=== PATIENT | female | born 1950 | race Caucasian/White ===

== ENCOUNTER → 2016-10-26 | Outpatient (CLI) | payer OTHER, MEDICAID ==
[~2016-10-26] MED LIST: ALBU8.5H5 INH; ALPR1TAB2 PO; ASPI-496 PO; ASPI325T4 PO; ATOR80TA75 PO; BACL-19 PO; CEFD300C2 PO; CHOL10002 PO; CHOL4PAC11 PO; CLOP75TA22 PO; DEXA4TAB PO; DIPH1TAB PO; DULO20CA45 PO; ERTA1VIA IV; FLUT1DIS3 INH; GABA300C10 PO; LEVO25TA2 PO; LEVO75TA5 PO; LISI1TAB5 PO; MECL25TA4 PO; METR500T PO; METR500T4 PO; MULT-658 PO; MUSCLE RELAXANT; NITR0.4T SL; NITR0.4T8 SL; NITR100C PO; NITR2.5C8 PO; OMEG1CAP12 PO; OMEP-110 PO; OMEP10CA4 PO; ONDA-39 PO; OXYC1TAB7 PO; OXYC1TAB9 PO; OXYC5CAP4 PO; PARO20TA4 PO; POLY17PO5 PO; POTA99TA PO; PROP10TA PO; ROPI0.25 PO; SUCR1TAB PO; TIOT18CA INH; TIOT4MIS3 INH; TRAM50TA2 PO; TRAZ50TA18 PO; VITA1TAB68 PO; ZOLP5TAB6 PO; fluticasone
== END | disposition home or self-care (01) ==
LOC: CFH 08:36
PROVIDERS: ATTEND Internal Medicine
DX: J44.9 Chronic obstructive pulmonary disease, unspecified (principal); J98.11 Atelectasis; K74.0 Hepatic fibrosis
CPT/HCPCS: 71250

== ENCOUNTER 2016-11-01 20:19 | Emergency (ER) | payer OTHER, MEDICAID ==
[~2016-11-01] VITALS: Ht 172.7 cm; Wt 94.8 kg
[2016-11-01 20:21] VITALS: BP 183/91
[2016-11-01] MEDS ORDERED: SODIUM CHLORIDE FLUSH 10ML SYR IVF ONE (20:30)
[2016-11-01] MEDS ORDERED: ONDANSETRON 2MG/ML, 2ML IVPush ONE (20:30)
[2016-11-01] MEDS ORDERED: MORPHINE SULFATE 4 MG/ML, 1ML IVPush PRN (20:30)
[2016-11-01 20:44] LABS: HEMOGLOBIN 13.3 g/dL (11.7-16.4)
[2016-11-01 20:55] LABS: BLOOD UREA NITROGEN 6 mg/dL (7-18)
[2016-11-01] MEDS ORDERED: METOCLOPRAMIDE 5 MG/ML, 2ML ONE (21:32)
[2016-11-01] MEDS ORDERED: KETOROLAC 30 MG/1 ML ONE (21:32)
[2016-11-01] MEDS ORDERED: METOCLOPRAMIDE 5 MG/ML, 2ML IM ONE (22:00)
[2016-11-01] MEDS ORDERED: ONDANSETRON ODT 8 MG PO ONE (22:00)
[2016-11-01] MEDS ORDERED: KETOROLAC 30 MG/1 ML IM ONE (22:00)
[2016-11-01] MEDS ORDERED: CIPROFLOXACIN 500 MG TABLET ONE (22:22)
[2016-11-01] MEDS ORDERED: CIPROFLOXACIN 500 MG TABLET PO ONE (22:30)
== END 2016-11-01 22:30 | disposition home or self-care (01) ==
LOC: ED 22:24
DX: R10.32 Left lower quadrant pain (principal); N30.00 Acute cystitis without hematuria; I10 Essential (primary) hypertension; E11.9 Type 2 diabetes mellitus without complications; E03.9 Hypothyroidism, unspecified; K21.9 Gastro-esophageal reflux disease without esophagitis; J44.9 Chronic obstructive pulmonary disease, unspecified; Z90.710 Acquired absence of both cervix and uterus; Z88.0 Allergy status to penicillin; Z88.2 Allergy status to sulfonamides; Z88.5 Allergy status to narcotic agent; Z88.1 Allergy status to other antibiotic agents
CPT/HCPCS: 36415; 74176; 80048; 81001; 82040; 85025; 87086; 87147; 96372; 99285; J1885; J2765

== ENCOUNTER 2017-01-25 17:52 | Inpatient (IN) | payer OTHER, MEDICAID ==
[~2017-01-25] VITALS: Ht 172.7 cm; Wt 95.0 kg
[~2017-01-25 17:52] MED LIST changes: -CEFD300C2 PO; +CEFD300C37 PO; -OMEG1CAP12 PO; +OMEG1CAP23 PO
[2017-01-25] MEDS ORDERED: ONDANSETRON 2MG/ML, 2ML ONE (18:21)
[2017-01-25] MEDS ORDERED: MORPHINE SULFATE 4 MG/ML, 1ML ONE ×2 (18:21→21:10)
[2017-01-25] MEDS ORDERED: DICYCLOMINE 20 MG TABLET PO ONE (18:30)
[2017-01-25] MEDS ORDERED: ONDANSETRON 2MG/ML, 2ML IVPush ONE (18:30)
[2017-01-25] MEDS ORDERED: SODIUM CHLORIDE 0.9% 1,000ML IVBOLUS ONE (18:30)
[2017-01-25] MEDS: MORPHINE SULFATE 4 MG/ML, 1ML IVPush PRN ×2 (18:32→21:20)
[2017-01-25 18:40] LABS: ASPARTATE AMINO TRANSFERASE 28 U/L (15-37); BLOOD UREA NITROGEN 8 mg/dL (7-18)
[2017-01-25 19:13] LABS: PATH.CAST-FLAG NOT PRESENT; SPERM-FLAG NOT PRESENT; SRC-FLAG NOT PRESENT; XTAL-FLAG NOT PRESENT; YLC-FLAG NOT PRESENT
[2017-01-25] MEDS ORDERED: METOCLOPRAMIDE 5 MG/ML, 2ML ONE (21:10)
[2017-01-25] MEDS ORDERED: DIPHENHYDRAMINE 50 MG/ML, 1ML ONE (21:10)
[2017-01-25] MEDS ORDERED: MORPHINE SULFATE 4 MG/ML, 1ML IVPush PRN (21:30)
[2017-01-25] MEDS ORDERED: DIPHENHYDRAMINE 50 MG/ML, 1ML IVPush ONE (21:30)
[2017-01-25] MEDS ORDERED: METOCLOPRAMIDE 5 MG/ML, 2ML IVPush ONE (21:30)
[2017-01-25] MEDS ORDERED: OMNIPAQUE 350 MG/ML, 100ML BOTTLE ONE (22:02)
[2017-01-26] MEDS ORDERED: ENOXAPARIN 40 MG/0.4 ML SQ SCH (01:00)
[2017-01-26] MEDS ORDERED: LORazepam 2 MG/ML, 1ML IVPush PRN (01:00)
[2017-01-26] MEDS ORDERED: LABETALOL 5MG/ML, 20ML IVPush PRN (01:00)
[2017-01-26] MEDS ORDERED: ONDANSETRON 2MG/ML, 2ML IVPush PRN (01:00)
[2017-01-26 01:41] VITALS: BP 96/58
[2017-01-26] MEDS: morphine SULFATE 10 MG/ML, 1ML IVPush PRN ×3 (02:06→15:19)
[2017-01-26] MEDS: SODIUM CHLORIDE 0.9% 1,000 ML IV SCH ×3 (03:12→17:31)
[2017-01-26 04:11] VITALS: BP 125/73
[2017-01-26 04:17] VITALS: BP 127/65
[2017-01-26 08:55] VITALS: BP 122/71
[2017-01-26] MEDS: PINK LADY ENEMA 1,000 ML PR SCH ×2 (13:30→23:15)
[2017-01-26 13:33] LABS: BLOOD UREA NITROGEN 7 mg/dL (7-18)
[2017-01-26 14:30] VITALS: BP 117/62
[2017-01-26] MEDS ORDERED: MAGNESIUM SULFATE PMX 2GM/50ML 50 ML IV ONE (17:00)
[2017-01-26 18:48] VITALS: BP 110/63
[2017-01-26] MEDS: DULOXETINE 20 MG CAPSULE.DR PO SCH (21:50)
[2017-01-26] MEDS: TRAZODONE 50MG TABLET PO PRN (21:50)
[2017-01-27 00:01] VITALS: BP 130/69
[2017-01-27] MEDS ORDERED: MORPHINE SULFATE 4 MG/ML, 1ML ONE ×2 (00:31→04:46)
[2017-01-27] MEDS: morphine SULFATE 10 MG/ML, 1ML IVPush PRN ×3 (00:33→21:06)
[2017-01-27] MEDS: SODIUM CHLORIDE 0.9% 1,000 ML IV SCH ×3 (00:35→20:30)
[2017-01-27 05:19] LABS: BLOOD UREA NITROGEN 5 mg/dL (7-18)
[2017-01-27 05:49] LABS: DIFF TOTAL CELLS COUNTED 100 CELL DIFF
[2017-01-27 05:51] LABS: VERIFY COUNTS? YES
[2017-01-27] MEDS ORDERED: PROPOFOL 10 MG/ML, 20ML ONE (07:29)
[2017-01-27] MEDS ORDERED: ONDANSETRON 2MG/ML, 2ML IVPush PRN (07:30)
[2017-01-27] MEDS ORDERED: ALBUTEROL/IPRATROPIUM 2.5MG/0.5MG, 3 ML NPPB PRN (07:30)
[2017-01-27] MEDS ORDERED: OXYcodone 5 MG/5 ML ORAL.SOL UDC PO PRN (07:30)
[2017-01-27] MEDS ORDERED: FENTANYL PF 100 MCG/2ML IV PRN (07:30)
[2017-01-27] MEDS ORDERED: HYDROmorphone 1 MG/ML, 1ML IV PRN (07:30)
[2017-01-27] MEDS ORDERED: MIDAZOLAM 1 MG/ML, 2ML IV PRN (07:30)
[2017-01-27] MEDS ORDERED: PROMETHAZINE 25 MG/ML, 1ML IV PRN (07:30)
[2017-01-27] MEDS ORDERED: MIDAZOLAM 1 MG/ML, 2ML ONE (07:33)
[2017-01-27 08:45] VITALS: BP 130/55
[2017-01-27] MEDS: DULOXETINE 20 MG CAPSULE.DR PO SCH ×2 (09:02→21:05)
[2017-01-27 12:25] VITALS: BP 155/69
[2017-01-27 20:50] VITALS: BP 138/74
[2017-01-27] MEDS: TRAZODONE 50MG TABLET PO PRN (23:08)
[2017-01-28] MEDS: TRAZODONE 50MG TABLET PO PRN ×3 (00:43→23:36)
[2017-01-28 02:19] VITALS: BP 145/77
[2017-01-28] MEDS: SODIUM CHLORIDE 0.9% 1,000 ML IV SCH ×3 (05:00→22:30)
[2017-01-28 06:54] VITALS: BP 119/68
[2017-01-28] MEDS: DULOXETINE 20 MG CAPSULE.DR PO SCH ×2 (09:00→20:28)
[2017-01-28 13:31] VITALS: BP 150/80
[2017-01-28] MEDS: morphine SULFATE 10 MG/ML, 1ML IVPush PRN ×2 (14:49→23:29)
[2017-01-28 18:48] VITALS: BP 146/76
[2017-01-29 01:25] VITALS: BP 127/58
[2017-01-29 07:36] VITALS: BP 125/77
[2017-01-29] MEDS ORDERED: OXYcodone/APAP 5/325MG TABLET PO ONE (09:00)
[2017-01-29] MEDS: DULOXETINE 20 MG CAPSULE.DR PO SCH (09:03)
[2017-01-29] MEDS ORDERED: OXYcodone/APAP 5/325MG TABLET ONE ×2 (09:10→09:11)
[2017-01-29] MEDS: SODIUM CHLORIDE 0.9% 1,000 ML IV SCH (09:16)
[2017-01-29 13:41] VITALS: BP 153/71
== END 2017-01-29 13:50 | disposition home or self-care (01) | DRG 394 ==
LOC: ED 21:05 → EDIP 01-26 00:15 → 4NOR 01-26 01:08
PROVIDERS: ADMIT Internal Medicine; ATTEND Internal Medicine
PROC: 0D7N8ZZ Dilation of Sigmoid Colon, Via Natural or Artificial Opening Endoscopic (ICD-10-PCS; principal; 2017-01-27 07:30)
DX: K91.3 Postprocedural intestinal obstruction (principal); K43.6 Other and unspecified ventral hernia with obstruction, without gangrene; E87.1 Hypo-osmolality and hyponatremia; J96.10 Chronic respiratory failure, unspecified whether with hypoxia or hypercapnia; K76.6 Portal hypertension; Z91.030 Bee allergy status; Z91.048 Other nonmedicinal substance allergy status; K59.00 Constipation, unspecified; I11.9 Hypertensive heart disease without heart failure; J44.9 Chronic obstructive pulmonary disease, unspecified; K59.09 Other constipation; K64.9 Unspecified hemorrhoids; R56.9 Unspecified convulsions; E03.9 Hypothyroidism, unspecified; E11.9 Type 2 diabetes mellitus without complications; E87.6 Hypokalemia; F31.9 Bipolar disorder, unspecified; G89.29 Other chronic pain; K21.9 Gastro-esophageal reflux disease without esophagitis; K74.60 Unspecified cirrhosis of liver; K80.20 Calculus of gallbladder without cholecystitis without obstruction; Z86.73 Personal history of transient ischemic attack (TIA), and cerebral infarction without residual deficits; Z87.11 Personal history of peptic ulcer disease; Z87.891 Personal history of nicotine dependence; Z90.710 Acquired absence of both cervix and uterus; Z93.2 Ileostomy status; Z88.0 Allergy status to penicillin; Z88.2 Allergy status to sulfonamides; Z88.8 Allergy status to other drugs, medicaments and biological substances; Z88.6 Allergy status to analgesic agent; Z88.1 Allergy status to other antibiotic agents; Z90.89 Acquired absence of other organs; Z90.49 Acquired absence of other specified parts of digestive tract
CPT/HCPCS: 36415; 74000; 74020; 74177; 76000; 80048; 80053; 81001; 83735; 85025; 87086; 87324; 96361; 96374; 96375; J1650; J2250; J2405; J2704; Q9967; C1725; J1200; J2060; J2270; J2765; J3475; J7030

== ENCOUNTER 2017-06-23 18:54 | Inpatient (IN) | payer OTHER, MEDICAID ==
[~2017-06-23] VITALS: Ht 172.7 cm; Wt 96.4 kg
[~2017-06-23 18:54] MED LIST changes: +ALBUTEROL MDI; +ASPI325T17 PO; -ASPI325T4 PO; +ATOR-2 PO; -ATOR80TA75 PO; -CLOP75TA22 PO; +CLOP75TA52 PO; +METO10TA2 PO; +METO5TAB57 PO; -METR500T4 PO; +METR500T8 PO; +NITR0.4T28 SL; -NITR0.4T8 SL; -ONDA-39 PO; +ONDA4TAB12 PO; +OXYC5CAP2 PO; -OXYC5CAP4 PO; -POTA99TA PO; +POTA99TA2 PO; +SUCR1ORA5 PO
[2017-06-23] MEDS ORDERED: HYDROmorphone 1 MG/ML, 1ML ONE ×2 (19:29→21:55)
[2017-06-23] MEDS ORDERED: HYDROmorphone 1 MG/ML, 1ML IM ONE (19:30)
[2017-06-23] MEDS ORDERED: SODIUM CHLORIDE FLUSH 10ML SYR IVF ONE (21:00)
[2017-06-23] MEDS ORDERED: HYDROmorphone 1 MG/ML, 1ML IV ONE (21:00)
[2017-06-23] MEDS ORDERED: ONDANSETRON 2MG/ML, 2ML IVPush ONE (21:00)
[2017-06-23] MEDS ORDERED: SODIUM CHLORIDE 0.9% 1,000ML IVBOLUS ONE (21:00)
[2017-06-23 21:09] LABS: HEMATOCRIT 41.4 % (34.6-47.8); HEMOGLOBIN 14.3 g/dL (11.7-16.4); WHITE BLOOD COUNT 7.2 x10^3/uL (3.4-10)
[2017-06-23] MEDS ORDERED: CETI10CA8 PO (21:23)
[2017-06-23] MEDS ORDERED: DULO20CA45 PO (21:23)
[2017-06-23] MEDS ORDERED: TRAZ50TA18 PO (21:23)
[2017-06-23] MEDS ORDERED: DOCU-131 PO (21:23)
[2017-06-23] MEDS ORDERED: ATOR-2 PO (21:23)
[2017-06-23] MEDS ORDERED: LISI1TAB3 PO (21:23)
[2017-06-23] MEDS ORDERED: NAPR250T6 PO (21:23)
[2017-06-23] MEDS ORDERED: FLUT1AER INH (21:23)
[2017-06-23] MEDS ORDERED: ASCO10004 PO (21:23)
[2017-06-23] MEDS ORDERED: FLUT9.9S NAS (21:23)
[2017-06-23] MEDS ORDERED: ASPI-650 PO (21:23)
[2017-06-23] MEDS ORDERED: METO25TA2 PO (21:23)
[2017-06-23] MEDS ORDERED: QUET25TA PO (21:23)
[2017-06-23] MEDS ORDERED: POTA99TA24 PO (21:23)
[2017-06-23] MEDS ORDERED: MAGN400T36 PO (21:23)
[2017-06-23] MEDS ORDERED: MECL25TA4 PO (21:23)
[2017-06-23] MEDS ORDERED: VITA150T PO (21:23)
[2017-06-23 21:26] LABS: ASPARTATE AMINO TRANSFERASE 23 U/L (15-37); BLOOD UREA NITROGEN 5 mg/dL (7-18)
[2017-06-23] MEDS ORDERED: OXYGEN INH (21:31)
[2017-06-23] MEDS ORDERED: ONDANSETRON 2MG/ML, 2ML ONE (21:55)
[2017-06-23] MEDS ORDERED: KETOROLAC 30 MG/1 ML IM PRN (22:30)
[2017-06-23] MEDS ORDERED: ONDANSETRON 2MG/ML, 2ML IVPush PRN (22:30)
[2017-06-23 22:47] VITALS: BP 123/75
[2017-06-23] MEDS ORDERED: METOCLOPRAMIDE 5 MG/ML, 2ML IVPush ONE (23:00)
[2017-06-23] MEDS: NS + 20MEQ KCL 1,000 ML IV SCH (23:46)
[2017-06-24] MEDS ORDERED: DIPHENHYDRAMINE 50 MG/ML, 1ML IVPush ONE ×2 (00:30)
[2017-06-24 01:02] LABS: PATH.CAST-FLAG NOT PRESENT; SPERM-FLAG NOT PRESENT; SRC-FLAG NOT PRESENT; XTAL-FLAG NOT PRESENT; YLC-FLAG NOT PRESENT
[2017-06-24 03:33] VITALS: BP 145/74
[2017-06-24] MEDS ORDERED: KETOROLAC 30 MG/1 ML IVPush PRN (04:30)
[2017-06-24] MEDS: KETOROLAC 30 MG/1 ML IVPush PRN ×3 (05:41→19:13)
[2017-06-24 05:54] LABS: BLOOD UREA NITROGEN 7 mg/dL (7-18)
[2017-06-24 06:40] VITALS: BP 118/69
[2017-06-24] MEDS: NS + 20MEQ KCL 1,000 ML IV SCH ×3 (06:54→23:31)
[2017-06-24] MEDS: ENOXAPARIN 40 MG/0.4 ML SQ SCH (10:23)
[2017-06-24] MEDS: CEFTRIAXONE PMX 1GM/50ML 50 ML IV SCH (16:58)
[2017-06-24 17:04] VITALS: BP 137/69
[2017-06-24 19:00] VITALS: BP 113/63
[2017-06-24] MEDS: TRAZODONE 50MG TABLET PO PRN (23:31)
[2017-06-25 00:43] VITALS: BP 147/81
[2017-06-25] MEDS: KETOROLAC 30 MG/1 ML IVPush PRN ×4 (02:25→23:26)
[2017-06-25] MEDS: NS + 20MEQ KCL 1,000 ML IV SCH ×3 (05:57→20:04)
[2017-06-25 07:06] VITALS: BP 114/71
[2017-06-25] MEDS: ENOXAPARIN 40 MG/0.4 ML SQ SCH (10:14)
[2017-06-25 14:15] VITALS: BP 135/70
[2017-06-25] MEDS: CEFTRIAXONE PMX 1GM/50ML 50 ML IV SCH (16:56)
[2017-06-25 19:21] VITALS: BP 148/79
[2017-06-25] MEDS: TRAZODONE 50MG TABLET PO PRN (23:25)
[2017-06-26 01:48] VITALS: BP 145/74
[2017-06-26] MEDS: NS + 20MEQ KCL 1,000 ML IV SCH ×3 (02:58→16:50)
[2017-06-26 05:57] LABS: HEMATOCRIT 33.4 % (34.6-47.8); HEMOGLOBIN 11.5 g/dL (11.7-16.4); WHITE BLOOD COUNT 3.3 x10^3/uL (3.4-10)
[2017-06-26 06:07] LABS: ASPARTATE AMINO TRANSFERASE 17 U/L (15-37); BLOOD UREA NITROGEN 5 mg/dL (7-18)
[2017-06-26 07:58] VITALS: BP 131/74
[2017-06-26] MEDS: KETOROLAC 30 MG/1 ML IVPush PRN ×3 (08:04→21:46)
[2017-06-26] MEDS: ENOXAPARIN 40 MG/0.4 ML SQ SCH (10:22)
[2017-06-26 15:00] VITALS: BP 137/78
[2017-06-26] MEDS: CEFTRIAXONE PMX 1GM/50ML 50 ML IV SCH (16:51)
[2017-06-26 18:57] VITALS: BP 141/74
[2017-06-26] MEDS: TRAZODONE 50MG TABLET PO PRN (21:46)
[2017-06-27] MEDS: NS + 20MEQ KCL 1,000 ML IV SCH ×4 (01:08→21:35)
[2017-06-27 01:38] VITALS: BP 135/71
[2017-06-27] MEDS: KETOROLAC 30 MG/1 ML IVPush PRN ×3 (07:35→21:35)
[2017-06-27 08:11] VITALS: BP 132/77
[2017-06-27] MEDS: ENOXAPARIN 40 MG/0.4 ML SQ SCH (10:25)
[2017-06-27 14:08] VITALS: BP 97/59
[2017-06-27 14:20] VITALS: BP 138/76
[2017-06-27] MEDS: DIPHENOXYLATE/ATROPINE TABLET PO PRN (17:12)
[2017-06-27 20:12] VITALS: BP 148/74
[2017-06-27] MEDS: TRAZODONE 50MG TABLET PO PRN (23:35)
[2017-06-28 01:53] VITALS: BP 127/73
[2017-06-28] MEDS: NS + 20MEQ KCL 1,000 ML IV SCH ×2 (04:26→10:20)
[2017-06-28] MEDS: KETOROLAC 30 MG/1 ML IVPush PRN ×2 (04:54→11:02)
[2017-06-28 08:39] VITALS: BP 143/82
[2017-06-28] MEDS: DIPHENOXYLATE/ATROPINE TABLET PO PRN (10:58)
[2017-06-28] MEDS: ENOXAPARIN 40 MG/0.4 ML SQ SCH (10:59)
== END 2017-06-28 13:05 | disposition home or self-care (01) | DRG 388 ==
LOC: ED 19:00 → EDIP 21:45 → 3NE 22:40
PROVIDERS: ADMIT Emergency Medicine; ATTEND Family Medicine
DX: K56.51 Intestinal adhesions [bands], with partial obstruction (principal); J96.90 Respiratory failure, unspecified, unspecified whether with hypoxia or hypercapnia; E87.1 Hypo-osmolality and hyponatremia; N39.0 Urinary tract infection, site not specified; I50.9 Heart failure, unspecified; J44.9 Chronic obstructive pulmonary disease, unspecified; E87.6 Hypokalemia; F31.9 Bipolar disorder, unspecified; G89.29 Other chronic pain; M54.5 Low back pain; M51.36 Other intervertebral disc degeneration, lumbar region; E03.9 Hypothyroidism, unspecified; E11.9 Type 2 diabetes mellitus without complications; K21.9 Gastro-esophageal reflux disease without esophagitis; K58.9 Irritable bowel syndrome, unspecified; K74.60 Unspecified cirrhosis of liver; M51.34 Other intervertebral disc degeneration, thoracic region; Z86.73 Personal history of transient ischemic attack (TIA), and cerebral infarction without residual deficits; Z87.442 Personal history of urinary calculi; Z99.81 Dependence on supplemental oxygen; Z87.11 Personal history of peptic ulcer disease; Z90.49 Acquired absence of other specified parts of digestive tract; Z90.710 Acquired absence of both cervix and uterus; Z90.89 Acquired absence of other organs; Z88.1 Allergy status to other antibiotic agents; Z88.5 Allergy status to narcotic agent; Z88.0 Allergy status to penicillin; Z88.2 Allergy status to sulfonamides; Z91.048 Other nonmedicinal substance allergy status
CPT/HCPCS: 36415; 72072; 72110; 74020; 74176; 80048; 80053; 81001; 83735; 84100; 85025; 87086; 87324; 96372; 96374; 96375; J0696; J1170; J1650; J1885; J2405; J3480; J1200; J2765; J7030

== ENCOUNTER 2017-09-18 18:22 | Emergency (ER) | payer OTHER, MEDICAID ==
[~2017-09-18] VITALS: Ht 172.7 cm; Wt 95.1 kg
[~2017-09-18 18:22] MED LIST changes: +ASCO10004 PO; +ASPI-650 PO; +CETI10CA8 PO; +DOCU-131 PO; +FLUT1AER INH; +FLUT9.9S NAS; +LISI1TAB3 PO; +MAGN400T36 PO; +METO25TA2 PO; +NAPR250T6 PO; +OXYGEN INH; +POTA99TA24 PO; +QUET25TA PO; +VITA150T PO
[2017-09-18 19:41] LABS: BASOPHILS # (AUTO) 0.06 x10^3/uL (0-0.1); BASOPHILS % (AUTO) 1 % (0-1); EOSINOPHILS # (AUTO) 0.16 x10^3/uL (0-0.4); EOSINOPHILS % (AUTO) 3 % (1-7); LYMPHOCYTES # (AUTO) 2.72 x10^3/uL (1-3.4); LYMPHOCYTES % (AUTO) 45 % (22-44); MD NO; MEAN CORPUSCULAR HEMOGLOBIN 32.8 pg (27.0-34.8); MEAN CORPUSCULAR HGB CONC 33.5 g/dL (32.4-35.8); MEAN CORPUSCULAR VOLUME 97.8 fL (80-100); MEAN PLATELET VOLUME 8.1 fL (7.4-10.4); MONOCYTES # (AUTO) 0.52 x10^3/uL (0.2-0.8); MONOCYTES % (AUTO) 9 % (2-9); NEUTROPHILS # (AUTO) 2.64 x10^3/uL (1.8-6.8); NEUTROPHILS % (AUTO) 43 % (42-75); PLATELET COUNT 148 x10^3/uL (130-400); RED BLOOD COUNT 4.09 x10^6/uL (3.82-5.3); RED CELL DISTRIBUTION WIDTH 13.6 % (9.6-15.2)
[2017-09-18 19:54] LABS: ALANINE AMINOTRANSFERASE 23 U/L (12-78); ALBUMIN 3.4 g/dL (3.4-5.0); ANION GAP 9 mmol/L (5-15); CALCIUM 8.7 mg/dL (8.5-10.1); CHLORIDE 99 mmol/L (98-107); CREATININE 0.98 mg/dL (0.55-1.02)
[2017-09-18 19:56] LABS: ALKALINE PHOSPHATASE 152 U/L (45-117); BILIRUBIN,TOTAL 0.4 mg/dL (0.2-1.0); TOTAL PROTEIN 7.4 g/dL (6.4-8.2)
[2017-09-18] MEDS ORDERED: OMNIPAQUE 350 MG/ML, 100ML BOTTLE ONE (23:14)
[2017-09-18] MEDS ORDERED: ONDANSETRON 2MG/ML, 2ML IVPush ONE (23:30)
[2017-09-18] MEDS ORDERED: POTASSIUM CHLORIDE 20 MEQ TAB.ER.PRT PO ONE (23:30)
[2017-09-19] MEDS ORDERED: HYDROmorphone 2 MG/ML, 1ML IVPush ONE
[2017-09-19] MEDS ORDERED: SODIUM CHLORIDE 0.9% 1,000ML IVBOLUS ONE
[2017-09-19] MEDS ORDERED: POTASSIUM CHLORIDE 20 MEQ TAB.ER.PRT ONE (00:23)
[2017-09-19] MEDS ORDERED: ONDANSETRON 2MG/ML, 2ML ONE ×2 (00:23→01:14)
[2017-09-19] MEDS ORDERED: HYDROmorphone 2 MG/ML, 1ML ONE (00:24)
[2017-09-19 00:42] LABS: MICROSCOPIC NOT IND
[2017-09-19 00:49] LABS: CULTURE INDICATED? NO
[2017-09-19] MEDS ORDERED: ONDANSETRON 2MG/ML, 2ML IVPush ONE (01:30)
[2017-09-19 02:16] VITALS: BP 104/40
== END 2017-09-19 02:18 | disposition home or self-care (01) ==
LOC: ED 23:36
DX: R19.7 Diarrhea, unspecified (principal); R10.32 Left lower quadrant pain; R10.31 Right lower quadrant pain; K21.9 Gastro-esophageal reflux disease without esophagitis; J44.9 Chronic obstructive pulmonary disease, unspecified; E03.9 Hypothyroidism, unspecified; I11.0 Hypertensive heart disease with heart failure; I50.9 Heart failure, unspecified; E11.9 Type 2 diabetes mellitus without complications
CPT/HCPCS: 36415; 74177; 80053; 81003; 83690; 85025; 96361; 96374; 96375; 96376; 99285; J1170; J2405; J7030; Q9967

== ENCOUNTER 2017-11-01 21:41 | Emergency (ER) | payer OTHER, MEDICAID ==
[~2017-11-01] VITALS: Ht 172.7 cm; Wt 95.0 kg
[2017-11-01] MEDS ORDERED: METHOCARBAMOL 750 MG TABLET ONE (22:30)
[2017-11-01] MEDS ORDERED: ASPIRIN 81 MG TABLET EC ONE (22:31)
[2017-11-01 22:46] LABS: BASOPHILS # (AUTO) 0.02 x10^3/uL (0-0.1); BASOPHILS % (AUTO) 1 % (0-1); EOSINOPHILS # (AUTO) 0.15 x10^3/uL (0-0.4); EOSINOPHILS % (AUTO) 3 % (1-7); LYMPHOCYTES # (AUTO) 1.56 x10^3/uL (1-3.4); LYMPHOCYTES % (AUTO) 34 % (22-44); MD NO; MEAN CORPUSCULAR HEMOGLOBIN 32.6 pg (27.0-34.8); MEAN CORPUSCULAR HGB CONC 33.8 g/dL (32.4-35.8); MEAN CORPUSCULAR VOLUME 96.5 fL (80-100); MEAN PLATELET VOLUME 7.7 fL (7.4-10.4); MONOCYTES # (AUTO) 0.43 x10^3/uL (0.2-0.8); MONOCYTES % (AUTO) 10 % (2-9); NEUTROPHILS # (AUTO) 2.36 x10^3/uL (1.8-6.8); NEUTROPHILS % (AUTO) 52 % (42-75); PLATELET COUNT 120 x10^3/uL (130-400); RED BLOOD COUNT 3.86 x10^6/uL (3.82-5.3); RED CELL DISTRIBUTION WIDTH 13.5 % (9.6-15.2)
[2017-11-01 22:57] LABS: ALBUMIN 3.4 g/dL (3.4-5.0); ANION GAP 6 mmol/L (5-15); CALCIUM 9.1 mg/dL (8.5-10.1); CHLORIDE 101 mmol/L (98-107); CREATININE 0.75 mg/dL (0.55-1.02)
[2017-11-01] MEDS ORDERED: ASPIRIN 81 MG TABLET CHEW PO ONE (23:00)
[2017-11-01] MEDS ORDERED: METHOCARBAMOL 750 MG TABLET PO ONE (23:00)
[2017-11-01 23:01] LABS: TROPONIN I < 0.015 ng/mL (0.000-0.045)
[2017-11-01 23:13] VITALS: BP 173/72
== END 2017-11-02 00:14 | disposition home or self-care (01) ==
LOC: ED 23:29
DX: M62.830 Muscle spasm of back (principal); I11.0 Hypertensive heart disease with heart failure; I50.9 Heart failure, unspecified; E11.9 Type 2 diabetes mellitus without complications; F31.9 Bipolar disorder, unspecified; G43.909 Migraine, unspecified, not intractable, without status migrainosus; G89.29 Other chronic pain; J44.9 Chronic obstructive pulmonary disease, unspecified; K21.9 Gastro-esophageal reflux disease without esophagitis; E07.9 Disorder of thyroid, unspecified; Z88.0 Allergy status to penicillin; Z88.2 Allergy status to sulfonamides; Z88.8 Allergy status to other drugs, medicaments and biological substances; Z91.030 Bee allergy status; Z88.5 Allergy status to narcotic agent; Z88.1 Allergy status to other antibiotic agents
CPT/HCPCS: 36415; 71045; 80048; 82040; 84484; 85025; 93005; 99285

== ENCOUNTER 2017-11-28 18:58 | Emergency (ER) | payer OTHER, MEDICAID ==
[~2017-11-28] VITALS: Ht 172.7 cm; Wt 100.3 kg
[2017-11-28 19:01] VITALS: BP 147/75
[2017-11-28 19:38] LABS: BASOPHILS # (AUTO) 0.07 x10^3/uL (0-0.1); BASOPHILS % (AUTO) 1 % (0-1); EOSINOPHILS # (AUTO) 0.16 x10^3/uL (0-0.4); EOSINOPHILS % (AUTO) 3 % (1-7); LYMPHOCYTES # (AUTO) 2.07 x10^3/uL (1-3.4); LYMPHOCYTES % (AUTO) 32 % (22-44); MD NO; MEAN CORPUSCULAR HEMOGLOBIN 33.3 pg (27.0-34.8); MEAN CORPUSCULAR HGB CONC 34.1 g/dL (32.4-35.8); MEAN CORPUSCULAR VOLUME 97.6 fL (80-100); MEAN PLATELET VOLUME 7.6 fL (7.4-10.4); MONOCYTES # (AUTO) 0.49 x10^3/uL (0.2-0.8); MONOCYTES % (AUTO) 8 % (2-9); NEUTROPHILS # (AUTO) 3.59 x10^3/uL (1.8-6.8); NEUTROPHILS % (AUTO) 56 % (42-75); PLATELET COUNT 154 x10^3/uL (130-400); RED BLOOD COUNT 4.05 x10^6/uL (3.82-5.3); RED CELL DISTRIBUTION WIDTH 13.9 % (9.6-15.2)
[2017-11-28 19:43] LABS: ANION GAP 9 mmol/L (5-15); CALCIUM 8.9 mg/dL (8.5-10.1); CHLORIDE 105 mmol/L (98-107); CREATININE 0.81 mg/dL (0.55-1.02)
[2017-11-28 20:11] LABS: INTERNATIONAL NORMALIZED RATIO 1.01 (0.93-1.1); PROTHROMBIN TIME 10.5 Seconds (9.6-11.5)
== END 2017-11-28 20:51 | disposition home or self-care (01) ==
LOC: ED 20:35
DX: K62.5 Hemorrhage of anus and rectum (principal); K64.8 Other hemorrhoids; E11.9 Type 2 diabetes mellitus without complications; K21.9 Gastro-esophageal reflux disease without esophagitis; I10 Essential (primary) hypertension; G43.909 Migraine, unspecified, not intractable, without status migrainosus; M54.9 Dorsalgia, unspecified; G89.29 Other chronic pain; J44.9 Chronic obstructive pulmonary disease, unspecified; Z88.0 Allergy status to penicillin; Z87.891 Personal history of nicotine dependence; Z90.49 Acquired absence of other specified parts of digestive tract
CPT/HCPCS: 36415; 80048; 85025; 85610; 85730; 99284

== ENCOUNTER 2018-01-08 14:45 | Emergency (ER) | payer OTHER, MEDICAID ==
[~2018-01-08] VITALS: Ht 172.7 cm; Wt 103.3 kg
[2018-01-08 14:48] VITALS: BP 168/70
[2018-01-08] MEDS ORDERED: HYDROcodone/APAP 5/325 TABLET ONE (15:18)
[2018-01-08] MEDS ORDERED: ONDANSETRON ODT 4 MG ONE (15:19)
[2018-01-08] MEDS ORDERED: ONDANSETRON ODT 8 MG PO ONE (15:30)
[2018-01-08] MEDS ORDERED: HYDROcodone/APAP 5/325 TABLET PO ONE (15:30)
== END 2018-01-08 16:42 | disposition home or self-care (01) ==
LOC: ED 16:38
DX: S63.651A Sprain of metacarpophalangeal joint of left index finger, initial encounter (principal); I50.9 Heart failure, unspecified; E11.9 Type 2 diabetes mellitus without complications; K21.9 Gastro-esophageal reflux disease without esophagitis; J44.9 Chronic obstructive pulmonary disease, unspecified; I11.0 Hypertensive heart disease with heart failure; X58.XXXA Exposure to other specified factors, initial encounter; Y93.89 Activity, other specified; Y92.009 Unspecified place in unspecified non-institutional (private) residence as the place of occurrence of the external cause; Y99.8 Other external cause status
CPT/HCPCS: 29125; 73110; 73130; 99284; Q0162

== ENCOUNTER 2018-02-01 22:19 | Emergency (ER) | payer OTHER, MEDICAID ==
[~2018-02-01] VITALS: Ht 172.7 cm; Wt 104.8 kg
[~2018-02-01 22:19] MED LIST changes: +OXYC-432 PO; -OXYC1TAB9 PO
[2018-02-01 23:00] LABS: MICROSCOPIC AUTO
[2018-02-01] MEDS ORDERED: ONDANSETRON 2MG/ML, 2ML IVPush ONE (23:00)
[2018-02-01] MEDS ORDERED: MORPHINE SULFATE 4 MG/ML, 1ML IVPush PRN (23:00)
[2018-02-01 23:04] LABS: CULTURE INDICATED? YES
[2018-02-01] MEDS ORDERED: ONDANSETRON ODT 4 MG ONE (23:04)
[2018-02-01] MEDS ORDERED: MORPHINE SULFATE 4 MG/ML, 1ML ONE (23:04)
[2018-02-01 23:13] LABS: BASOPHILS # (AUTO) 0.04 x10^3/uL (0-0.1); BASOPHILS % (AUTO) 1 % (0-1); EOSINOPHILS # (AUTO) 0.13 x10^3/uL (0-0.4); EOSINOPHILS % (AUTO) 3 % (1-7); LYMPHOCYTES # (AUTO) 1.42 x10^3/uL (1-3.4); LYMPHOCYTES % (AUTO) 32 % (22-44); MD NO; MEAN CORPUSCULAR HEMOGLOBIN 32.5 pg (27.0-34.8); MEAN CORPUSCULAR HGB CONC 34.4 g/dL (32.4-35.8); MEAN CORPUSCULAR VOLUME 94.6 fL (80-100); MONOCYTES # (AUTO) 0.42 x10^3/uL (0.2-0.8); MONOCYTES % (AUTO) 9 % (2-9); NEUTROPHILS # (AUTO) 2.42 x10^3/uL (1.8-6.8); NEUTROPHILS % (AUTO) 55 % (42-75); PLATELET COUNT 137 x10^3/uL (130-400); RED CELL DISTRIBUTION WIDTH 13.6 % (9.6-15.2)
[2018-02-01 23:21] LABS: ALANINE AMINOTRANSFERASE 32 U/L (12-78); ALBUMIN 3.7 g/dL (3.4-5.0); ANION GAP 5 mmol/L (5-15); CALCIUM 9.3 mg/dL (8.5-10.1); CHLORIDE 100 mmol/L (98-107); CREATININE 0.97 mg/dL (0.55-1.02)
[2018-02-01 23:23] LABS: ALKALINE PHOSPHATASE 177 U/L (45-117); BILIRUBIN,TOTAL 0.4 mg/dL (0.2-1.0); TOTAL PROTEIN 7.6 g/dL (6.4-8.2)
[2018-02-01 23:54] VITALS: BP 131/60
== END 2018-02-02 00:02 | disposition home or self-care (01) ==
LOC: ED 23:33
DX: N30.00 Acute cystitis without hematuria (principal); R10.84 Generalized abdominal pain; I10 Essential (primary) hypertension; J44.9 Chronic obstructive pulmonary disease, unspecified; G43.909 Migraine, unspecified, not intractable, without status migrainosus; Z86.73 Personal history of transient ischemic attack (TIA), and cerebral infarction without residual deficits; K21.9 Gastro-esophageal reflux disease without esophagitis; E03.9 Hypothyroidism, unspecified; E11.9 Type 2 diabetes mellitus without complications; Z88.0 Allergy status to penicillin; Z88.1 Allergy status to other antibiotic agents; Z90.49 Acquired absence of other specified parts of digestive tract
CPT/HCPCS: 36415; 74022; 80053; 81001; 83690; 85025; 87086; 96374; 96375; 99285; J2405

== ENCOUNTER 2018-04-04 12:42 | Observation (INO) | payer OTHER, MEDICAID ==
[~2018-04-04] VITALS: Ht 172.7 cm; Wt 105.7 kg
[~2018-04-04 12:42] MED LIST changes: +OXYC-307 PO; +TRAZ-136 PO; -TRAZ50TA18 PO
[2018-04-04] MEDS ORDERED: ASPIRIN 81 MG TABLET CHEW PO ONE (13:30)
[2018-04-04] MEDS ORDERED: ONDANSETRON ODT 4 MG PO ONE (13:30)
[2018-04-04] MEDS ORDERED: ONDANSETRON ODT 4 MG ONE (13:35)
[2018-04-04] MEDS ORDERED: ASPIRIN 81 MG TABLET CHEW ONE (13:35)
[2018-04-04 13:45] LABS: BASOPHILS # (AUTO) 0.02 x10^3/uL (0-0.1); BASOPHILS % (AUTO) 1 % (0-1); EOSINOPHILS # (AUTO) 0.08 x10^3/uL (0-0.4); EOSINOPHILS % (AUTO) 3 % (1-7); LYMPHOCYTES # (AUTO) 0.98 x10^3/uL (1-3.4); LYMPHOCYTES % (AUTO) 31 % (22-44); MD NO; MEAN CORPUSCULAR HEMOGLOBIN 32.4 pg (27.0-34.8); MEAN CORPUSCULAR HGB CONC 34.7 g/dL (32.4-35.8); MEAN CORPUSCULAR VOLUME 93.5 fL (80-100); MEAN PLATELET VOLUME 8.4 fL (7.4-10.4); MONOCYTES % (AUTO) 6 % (2-9); NEUTROPHILS # (AUTO) 1.94 x10^3/uL (1.8-6.8); NEUTROPHILS % (AUTO) 60 % (42-75); PLATELET COUNT 111 x10^3/uL (130-400); RED BLOOD COUNT 3.98 x10^6/uL (3.82-5.3); RED CELL DISTRIBUTION WIDTH 14.9 % (9.6-15.2)
[2018-04-04 13:55] LABS: ALBUMIN 3.5 g/dL (3.4-5.0); ANION GAP 8 mmol/L (5-15); CALCIUM 8.9 mg/dL (8.5-10.1); CHLORIDE 100 mmol/L (98-107); CREATININE 1.03 mg/dL (0.55-1.02)
[2018-04-04 13:58] LABS: TROPONIN I 0.015 ng/mL (0.000-0.045)
[2018-04-04] MEDS ORDERED: LISI1TAB3 PO (15:32)
[2018-04-04] MEDS ORDERED: ASPI-647 PO (15:32)
[2018-04-04] MEDS ORDERED: POTASSIUM CHLORIDE 20 MEQ TAB.ER.PRT PO ONE (17:00)
[2018-04-04] MEDS ORDERED: POLYETHYLENE GLYCOL 17 GM PACKET PO PRN (17:00)
[2018-04-04] MEDS ORDERED: LOSA1TAB19 PO (17:06)
[2018-04-04 17:28] LABS: FREE T4 (FREE THYROXINE) 0.97 ng/dL (0.76-1.46)
[2018-04-04] MEDS ORDERED: ONDANSETRON 2MG/ML, 2ML IVPush PRN (17:30)
[2018-04-04] MEDS ORDERED: ONDANSETRON ODT 4 MG PO PRN (17:30)
[2018-04-04] MEDS ORDERED: ALBUTEROL SULFATE 2.5 MG/3 ML NPPB PRN (18:30)
[2018-04-04 18:32] LABS: HEMOGLOBIN A1C 6.2 % (4.2-6.3)
[2018-04-04 20:00] VITALS: BP 108/69
[2018-04-04] MEDS ORDERED: QUETIAPINE 25MG TABLET PO SCH (21:00)
[2018-04-04] MEDS ORDERED: ATORVASTATIN 80 MG TABLET PO SCH (21:00)
[2018-04-04] MEDS ORDERED: TRAZODONE 50MG TABLET PO PRN (21:00)
[2018-04-04 21:55] VITALS: BP 113/68
[2018-04-04] MEDS: DULOXETINE 20 MG CAPSULE.DR PO SCH (21:59)
[2018-04-04] MEDS: MECLIZINE CHEWABLE 25 MG TAB PO SCH (22:00)
[2018-04-04] MEDS: OXYcodone/APAP 10/325MG TABLET PO SCH (22:00)
[2018-04-04] MEDS: GABAPENTIN 300 MG CAPSULE PO SCH (22:00)
[2018-04-04 23:21] VITALS: BP 113/66
[2018-04-05 00:10] LABS: TROPONIN I < 0.015 ng/mL (0.000-0.045)
[2018-04-05 00:25] VITALS: BP 164/89
[2018-04-05] MEDS ORDERED: MAGNESIUM SULFATE PMX 2GM/50ML 50 ML IV ONE (01:00)
[2018-04-05 01:59] VITALS: BP 100/59
[2018-04-05] MEDS ORDERED: LEVOTHYROXINE 75 MCG TABLET PO SCH (06:00)
[2018-04-05 06:09] LABS: BASOPHILS # (AUTO) 0.03 x10^3/uL (0-0.1); BASOPHILS % (AUTO) 1 % (0-1); EOSINOPHILS # (AUTO) 0.14 x10^3/uL (0-0.4); EOSINOPHILS % (AUTO) 3 % (1-7); LYMPHOCYTES # (AUTO) 2.08 x10^3/uL (1-3.4); LYMPHOCYTES % (AUTO) 44 % (22-44); MD NO; MEAN CORPUSCULAR HEMOGLOBIN 32.3 pg (27.0-34.8); MEAN CORPUSCULAR HGB CONC 34.4 g/dL (32.4-35.8); MEAN CORPUSCULAR VOLUME 93.7 fL (80-100); MEAN PLATELET VOLUME 8.6 fL (7.4-10.4); MONOCYTES % (AUTO) 9 % (2-9); NEUTROPHILS # (AUTO) 2.06 x10^3/uL (1.8-6.8); NEUTROPHILS % (AUTO) 44 % (42-75); PLATELET COUNT 102 x10^3/uL (130-400); RED BLOOD COUNT 3.71 x10^6/uL (3.82-5.3); RED CELL DISTRIBUTION WIDTH 15.6 % (9.6-15.2)
[2018-04-05 06:24] LABS: TROPONIN I < 0.015 ng/mL (0.000-0.045)
[2018-04-05 06:52] LABS: ALANINE AMINOTRANSFERASE 25 U/L (12-78); ALBUMIN 3.2 g/dL (3.4-5.0); ANION GAP 6 mmol/L (5-15); CALCIUM 8.7 mg/dL (8.5-10.1); CHLORIDE 101 mmol/L (98-107); CREATININE 1.11 mg/dL (0.55-1.02)
[2018-04-05 07:02] LABS: ALKALINE PHOSPHATASE 97 U/L (45-117); BILIRUBIN,TOTAL 0.8 mg/dL (0.2-1.0); TOTAL PROTEIN 6.7 g/dL (6.4-8.2)
[2018-04-05 07:29] VITALS: BP 125/73
[2018-04-05] MEDS: DULOXETINE 20 MG CAPSULE.DR PO SCH (08:38)
[2018-04-05] MEDS: MECLIZINE CHEWABLE 25 MG TAB PO SCH ×2 (08:39→16:34)
[2018-04-05] MEDS: OXYcodone/APAP 10/325MG TABLET PO SCH (08:39)
[2018-04-05] MEDS: GABAPENTIN 300 MG CAPSULE PO SCH ×2 (08:39→16:34)
[2018-04-05 08:40] VITALS: BP 119/56
[2018-04-05] MEDS ORDERED: ASPIRIN 325 MG TABLET EC PO SCH (09:00)
[2018-04-05] MEDS ORDERED: SENNA/DOCUSATE TABLET PO SCH (09:00)
[2018-04-05] MEDS ORDERED: MULTIVITAMIN 1 TABLET PO SCH (09:00)
[2018-04-05] MEDS ORDERED: LISINOPRIL 10 MG TABLET PO SCH (09:00)
[2018-04-05] MEDS ORDERED: ASCORBIC ACID 500 MG TABLET PO SCH (09:00)
[2018-04-05] MEDS ORDERED: FLUTICASONE NASAL SPRAY 16GM NAS SCH (09:00)
[2018-04-05] MEDS ORDERED: HYDROCHLOROTHIAZIDE 12.5 MG CAPSULE PO SCH (09:00)
[2018-04-05] MEDS ORDERED: OMEPRAZOLE 20 MG CAPSULE.DR PO SCH (09:00)
[2018-04-05] MEDS ORDERED: CHOLECALCIFEROL 1,000 UNIT TABLET PO SCH (09:00)
[2018-04-05] MEDS ORDERED: METOPROLOL SUCCINATE 25 MG TAB.ER.24H PO SCH (09:00)
[2018-04-05 15:10] VITALS: BP 113/68
== END 2018-04-05 18:12 | disposition home or self-care (01) ==
LOC: ED 15:33 → EDIP 15:57 → INTOOBSV 15:57 → 5SO 17:16
PROVIDERS: ADMIT Internal Medicine; ATTEND Internal Medicine
DX: R07.9 Chest pain, unspecified (principal); E03.9 Hypothyroidism, unspecified; E87.6 Hypokalemia; D64.9 Anemia, unspecified; I50.32 Chronic diastolic (congestive) heart failure; I11.0 Hypertensive heart disease with heart failure; I50.9 Heart failure, unspecified; G45.9 Transient cerebral ischemic attack, unspecified; J44.9 Chronic obstructive pulmonary disease, unspecified; J96.10 Chronic respiratory failure, unspecified whether with hypoxia or hypercapnia; K21.9 Gastro-esophageal reflux disease without esophagitis; Z79.82 Long term (current) use of aspirin; Z87.11 Personal history of peptic ulcer disease; Z86.73 Personal history of transient ischemic attack (TIA), and cerebral infarction without residual deficits; Z87.442 Personal history of urinary calculi; Z90.710 Acquired absence of both cervix and uterus
CPT/HCPCS: 36415; 71045; 80048; 80053; 82040; 83036; 83735; 83880; 84100; 84439; 84443; 84484; 85025; 93005; 93306; 96365; 96366; 97162; 99285; G0378; G8978; G8979; G8990; J3475; Q0162

== ENCOUNTER → 2018-04-23 | Outpatient (CLI) | payer OTHER, MEDICAID ==
[~2018-04-23] MED LIST changes: +ASPI-647 PO; +LOSA1TAB19 PO
== END | disposition home or self-care (01) ==
LOC: CVU 06:50
PROVIDERS: ATTEND Internal Medicine Cardiovascular Disease
DX: M79.661 Pain in right lower leg (principal); R60.9 Edema, unspecified; I73.9 Peripheral vascular disease, unspecified; Z88.1 Allergy status to other antibiotic agents; J44.9 Chronic obstructive pulmonary disease, unspecified; I50.9 Heart failure, unspecified; Z87.891 Personal history of nicotine dependence
CPT/HCPCS: 93922

== ENCOUNTER → 2018-04-24 | Outpatient (CLI) | payer OTHER, MEDICAID | END | disposition home or self-care (01) | LOC: CVU 12:03 | PROVIDERS: ATTEND Internal Medicine Cardiovascular Disease | DX: I83.92 Asymptomatic varicose veins of left lower extremity (principal); I50.9 Heart failure, unspecified; J44.9 Chronic obstructive pulmonary disease, unspecified | CPT/HCPCS: 93970 ==

== ENCOUNTER 2019-01-07 19:22 | Inpatient (IN) | payer MEDICARE, MEDICAID ==
[~2019-01-07] VITALS: Ht 172.7 cm; Wt 103.2 kg
[~2019-01-07 19:22] MED LIST changes: +METR-90 PO; -METR500T8 PO; -NITR0.4T SL; +NITR0.4T41 SL; -PROP10TA PO; +PROP10TA16 PO; -QUET25TA PO; +QUET25TA7 PO; -TRAZ-136 PO; +TRAZ50TA66 PO
[2019-01-07 19:49] LABS: BASOPHILS # (AUTO) 0.03 x10^3/uL (0-0.1); BASOPHILS % (AUTO) 1 % (0-1); EOSINOPHILS # (AUTO) 0.08 x10^3/uL (0-0.4); EOSINOPHILS % (AUTO) 2 % (1-7); LYMPHOCYTES # (AUTO) 1.61 x10^3/uL (1-3.4); LYMPHOCYTES % (AUTO) 41 % (22-44); MD NO; MEAN CORPUSCULAR HEMOGLOBIN 30.8 pg (27.0-34.8); MEAN CORPUSCULAR HGB CONC 32.7 g/dL (32.4-35.8); MEAN CORPUSCULAR VOLUME 94.2 fL (80-100); MEAN PLATELET VOLUME 8.5 fL (7.4-10.4); MONOCYTES # (AUTO) 0.32 x10^3/uL (0.2-0.8); MONOCYTES % (AUTO) 8 % (2-9); NEUTROPHILS # (AUTO) 1.85 x10^3/uL (1.8-6.8); NEUTROPHILS % (AUTO) 48 % (42-75); PLATELET COUNT 126 x10^3/uL (130-400); RED BLOOD COUNT 4.01 x10^6/uL (3.82-5.3); RED CELL DISTRIBUTION WIDTH 17.9 % (9.6-15.2)
[2019-01-07 20:01] LABS: ALANINE AMINOTRANSFERASE 24 U/L (12-78); ALBUMIN 3.4 g/dL (3.4-5.0); ANION GAP 5 mmol/L (5-15); CALCIUM 8.9 mg/dL (8.5-10.1); CHLORIDE 103 mmol/L (98-107); CREATININE 0.96 mg/dL (0.55-1.02)
[2019-01-07 20:03] LABS: ALKALINE PHOSPHATASE 119 U/L (45-117); BILIRUBIN,TOTAL 0.4 mg/dL (0.2-1.0); TOTAL PROTEIN 7.3 g/dL (6.4-8.2)
--- NOTE | 2019-01-07 20:33 | NUR ---
PT AMBULATED STEADILY TO ROOM FROM LOBBY WITH RN AND DAUGHTER. PT TO RESTROOM TO PROVIDE UA.
[2019-01-07] MEDS ORDERED: ONDANSETRON 2MG/ML, 2ML ONE (20:48)
[2019-01-07] MEDS ORDERED: MORPHINE SULFATE 4 MG/ML, 1ML ONE ×2 (20:49→22:22)
[2019-01-07 20:53] LABS: MICROSCOPIC AUTO
[2019-01-07] MEDS: MORPHINE SULFATE 4 MG/ML, 1ML IVPush PRN ×2 (20:54→22:24)
--- NOTE | 2019-01-07 20:57 | NUR ---
PT CO GRADUALLY WORSENING RLQ/LLQ ABD PAIN X FIVE DAYS. N/V X TODAY. HX OF BOWEL OBSTRUCTION, DIVERTICULITIS, ILEOSTOMY AND REVERSAL. LBM TODAY, "SMALL". PER PT. ABD SOFT AND TENDER TO PALPATION. PT DENIES URINARY S/S, FEVER, VAGINAL DC OR BLEEDING. IV ESTABLISHED. PT MEDICATED PER EMAR. BP/SPO2 MONITOR IN PLACE. ON 2L O2 BY NC.
[2019-01-07] MEDS ORDERED: SODIUM CHLORIDE 0.9% 1,000ML IVBOLUS ONE (21:00)
[2019-01-07] MEDS ORDERED: SODIUM CHLORIDE FLUSH 10ML SYR IVF ONE (21:00)
[2019-01-07] MEDS ORDERED: ONDANSETRON 2MG/ML, 2ML IVPush ONE (21:00)
[2019-01-07 21:05] LABS: CULTURE INDICATED? YES
--- NOTE | 2019-01-07 21:43 | NUR ---
PT SITTING UP IN [facility], AWAKE/ALERT. PT REPORTS MILD IMPROVEMENT IN LLQ PAIN, "IT STILL STABS SOMETIMES". SPO2 >90% ON 2.5L BY NC. PT TO CT AT THIS TIME VIA [facility]
[2019-01-07] MEDS ORDERED: CEFTRIAXONE PMX 1GM/50ML 50 ML IVPB ONE (22:00)
[2019-01-07] MEDS ORDERED: CEFTRIAXONE PMX 1GM/50ML 50 ML ONE (22:22)
--- NOTE | 2019-01-07 22:26 | NUR ---
PT MEDICATED PER EMAR FOR CONTINUED PAIN, 01/07. ABX INITIATED. NO BC PER ERP
[2019-01-07] MEDS ORDERED: METOCLOPRAMIDE 5 MG/ML, 2ML IVPush ONE (22:30)
[2019-01-07] MEDS ORDERED: METOCLOPRAMIDE 5 MG/ML, 2ML ONE (22:31)
[2019-01-07] MEDS ORDERED: OXYC10TA6 PO (22:47)
--- NOTE | 2019-01-07 22:50 | NUR ---
PT TO BE HOLD IN ED. PT STOOD STEADILY AT BEDSIDE WHILE GURNEY WAS REPLACED WITH HOSPITAL BED. PT REPOSITIONED FOR COMFORT. PT REPORTS IMPROVEMENT IN PAIN AND NAUSEA WITH MEDICATIONS. HOSPITALIST AT BEDSIDE.
[2019-01-07] MEDS ORDERED: SODIUM CHLORIDE 0.9% 1,000 ML IV SCH (22:55)
[2019-01-07] MEDS ORDERED: morphine SULFATE 10 MG/ML, 1ML IVPush PRN (23:00)
[2019-01-07] MEDS ORDERED: hydrALAzine 20 MG/ML, 1ML IVPush PRN (23:00)
[2019-01-07] MEDS ORDERED: ACETAMINOPHEN 325 MG TABLET PO PRN (23:00)
--- NOTE | 2019-01-07 23:05 | NUR ---
IMPROVEMENT IN PAIN AND NAUSEA REPORTED BY PT. SPO2 REMAINS >90% ON 3L BY NC
[2019-01-07] MEDS ORDERED: POTASSIUM CHLORIDE 40 MEQ in SODIUM CHLORIDE 0.9% 500 ML IV ONE (23:30)
[2019-01-07] MEDS ORDERED: TRAZODONE 50MG TABLET PO PRN (23:30)
[2019-01-07 23:37] LABS: HEMOGLOBIN A1C 6.1 % (4.2-6.3)
[2019-01-07 23:48] LABS: FREE T4 (FREE THYROXINE) 0.92 ng/dL (0.76-1.46); THYROID STIMULATING HORMONE 1.14 mIU/L (0.358-3.740)
--- NOTE | 2019-01-07 23:50 | NUR ---
IVF HUNG PER ORDER. BP/SPO2/ECG MONITORING IN PLACE. SINUS BERTRAND ON MONITOR. HR 50'S. PT DENIES NAUSEA/DIZZINESS/CP. IMPROVEMENT IN PAIN AND NAUSEA CONFIRMED WITH DR JC THAT PO FLUIDS WITH ORAL MEDS OKAY. MEDICATIONS REQUESTED FROM PHARMACY
[2019-01-07] MEDS ORDERED: HEPARIN 5,000 UNITS/ML, 1ML ONE (23:59)
[2019-01-07] MEDS ORDERED: MECLIZINE CHEWABLE 25 MG TAB ONE (23:59)
[2019-01-08] MEDS ORDERED: QUETIAPINE 25MG TABLET ONE
[2019-01-08] MEDS: HEPARIN 5,000 UNITS/ML, 1ML SQ SCH ×4 (00:08→23:00)
[2019-01-08] MEDS: MECLIZINE 25 MG TABLET PO SCH ×4 (00:09→21:00)
[2019-01-08] MEDS: QUETIAPINE 25MG TABLET PO SCH ×2 (00:10→21:48)
[2019-01-08] MEDS: GABAPENTIN 300 MG CAPSULE PO SCH ×4 (00:10→21:00)
--- NOTE | 2019-01-08 01:30 | NUR ---
PT RESTING IN HOSPITAL BED W/ EYES CLOSED. EVEN/REGULAR RESPIRATIONS NOTED. NO EVIDENCE OF VOMITING NOTED. BP/SPO2/ECG MONITORING REMAIN IN PLACE. SPO2 >90% ON BASELINE NIGHT O2 NEEDS, 2-2.5L.
--- NOTE | 2019-01-08 02:38 | NUR ---
PT RESTING IN GURNEY W/ EYES CLOSED. EVEN/REGULAR RESPIRATIONS NOTED.
--- NOTE | 2019-01-08 03:14 | NUR ---
PT AMBULATED STEADILY TO BATHROOM USING OWN CANE. RETURNED TO BED, BP/SPO2/ECG MONITORING IN PLACE. IVF CONTINUES TO INFUSE. BEDSIDE REPORT TO TRIP NAZARIO
--- NOTE | 2019-01-08 03:36 | NUR ---
LATE NOTE ENTRY FOR 0313: Recieved bedside report from TRIP Dalton. All questions answered. Pt up ambulatory from restroom independently with steady gait and balance. NADN. Pt back to [facility] and reconnected to pulse ox, monitor technician, and NIBP cuff. No needs requested at this time. Pt requested all bedside rails up for comfort and safety measures. All four hospital bed rails up per pt request. Call light within reach. Pt requesting light off and door shut. No other needs expressed at this time.
[2019-01-08 04:52] LABS: ALBUMIN 2.8 g/dL (3.4-5.0); ANION GAP 4 mmol/L (5-15); CALCIUM 8.1 mg/dL (8.5-10.1); CHLORIDE 109 mmol/L (98-107)
[2019-01-08 04:55] LABS: ALANINE AMINOTRANSFERASE 21 U/L (12-78); ALKALINE PHOSPHATASE 95 U/L (45-117); BILIRUBIN,TOTAL 0.5 mg/dL (0.2-1.0); CHOLESTEROL, TOTAL 92 mg/dL (140-239); HDL CHOL % 49 % (28-40); HDL CHOLESTEROL (DIRECT) 45 mg/dL (40-60); LDL CHOLESTEROL,CALCULATED 30 mg/dL (54-169); LDL/HDL RATIO 0.7 (0.5-3.0); TRIGLYCERIDES 87 mg/dL (50-200); VLDL CHOLESTEROL 17 mg/dL (0-25)
[2019-01-08 04:58] LABS: MEAN CORPUSCULAR HEMOGLOBIN 31.7 pg (27.0-34.8); MEAN CORPUSCULAR HGB CONC 33.4 g/dL (32.4-35.8); RED BLOOD COUNT 3.39 x10^6/uL (3.82-5.3); RED CELL DISTRIBUTION WIDTH 17.6 % (9.6-15.2)
[2019-01-08 05:41] LABS: MEAN PLATELET VOLUME 8.7 fL (7.4-10.4); PLATELET COUNT 113 x10^3/uL (130-400)
[2019-01-08 05:42] LABS: MD YES
[2019-01-08] MEDS ORDERED: OMNIPAQUE 350 MG/ML, 100ML BOTTLE ONE (05:47)
[2019-01-08 05:48] LABS: ANISOCYTOSIS 1+; EOS#(MANUAL) 0.06 x10^3/uL (0.0-0.4); EOS% (MANUAL) 2 % (1-7); LYMPH#(MANUAL) 1.46 x10^3/uL (1-3.4); LYMPHS% (MANUAL) 52 % (22-44); MONOS#(MANUAL) 0.22 x10^3/uL (0.3-2.7); MONOS% (MANUAL) 8 % (2-9); SEG#(MANUAL) 1.06 x10^3/uL (1.8-6.8); SEGS% (MANUAL) 38 % (42-75)
[2019-01-08 05:49] LABS: <PLATELET ESTIMATE> DECREASED; <PLT MORPHOLOGY> NORMAL PLT MORPH; OVALOCYTES 1+
[2019-01-08] MEDS ORDERED: MAGNESIUM SULFATE PMX 2GM/50ML 50 ML ONE (07:28)
[2019-01-08] MEDS ORDERED: MAGNESIUM SULFATE PMX 2GM/50ML 50 ML IV ONE (07:30)
[2019-01-08] MEDS ORDERED: MORPHINE SULFATE 4 MG/ML, 1ML IVPush PRN (07:30)
[2019-01-08] MEDS: SODIUM CHLORIDE 0.9% 1,000 ML IV SCH ×2 (07:35→18:23)
[2019-01-08] MEDS ORDERED: METOPROLOL TARTRATE 25 MG TABLET ONE (07:51)
[2019-01-08] MEDS ORDERED: MECLIZINE CHEWABLE 25 MG TAB ONE (07:51)
[2019-01-08] MEDS ORDERED: ASPIRIN 325 MG TABLET EC ONE (07:51)
[2019-01-08] MEDS ORDERED: GABAPENTIN 300 MG CAPSULE ONE ×2 (07:52)
[2019-01-08] MEDS: CHOLECALCIFEROL 1,000 UNIT TABLET PO SCH (08:00)
[2019-01-08] MEDS: ASCORBIC ACID 500 MG TABLET PO SCH (08:00)
[2019-01-08] MEDS: FLUTICASONE NASAL SPRAY 16GM NAS SCH (08:00)
[2019-01-08] MEDS: DULOXETINE 20 MG CAPSULE.DR PO SCH ×2 (08:01→21:27)
[2019-01-08] MEDS: LOSARTAN 50MG TABLET PO SCH (08:02)
[2019-01-08] MEDS: MULTIVITAMIN 1 TABLET PO SCH (08:02)
[2019-01-08] MEDS: LEVOTHYROXINE 75 MCG TABLET PO SCH (08:03)
[2019-01-08] MEDS: LACTOBACILLUS CHEW TABLET PO SCH ×3 (08:03→21:26)
[2019-01-08] MEDS ORDERED: HEPARIN 5,000 UNITS/ML, 1ML ONE (08:41)
[2019-01-08] MEDS ORDERED: BISACODYL 10 MG SUPP ONE (08:42)
--- NOTE | 2019-01-08 08:51 | NUR ---
Yellow lab slip sent to pharmacy.
--- NOTE | 2019-01-08 08:53 | NUR ---
LATE NOTE FOR 0500: Pt resting on hospital bed. NADN. No needs expressed. Pt connected to NIBP, continous pulse ox, and soc analyst.
--- NOTE | 2019-01-08 08:54 | NUR ---
LATE NOTE ENTRY FOR 0700: Pt resting on hospital bed. NADN. No needs expressed. Call light within reach. Toileting offered. No other needs requested at this time.
--- NOTE | 2019-01-08 08:54 | NUR ---
LATE NOTE ENTRY FOR 0600: Pt resting on hospital bed. NADN. No needs expressed.
[2019-01-08] MEDS ORDERED: HYDROCHLOROTHIAZIDE 12.5 MG CAPSULE PO SCH (09:00)
[2019-01-08] MEDS ORDERED: ASPIRIN 325 MG TABLET EC PO SCH (09:00)
[2019-01-08] MEDS: METOPROLOL SUCCINATE 25 MG TAB.ER.24H PO SCH (09:03)
[2019-01-08] MEDS: BISACODYL 10 MG SUPP PR SCH (09:04)
[2019-01-08] MEDS ORDERED: OMEPRAZOLE 20 MG CAPSULE.DR ONE (09:07)
[2019-01-08] MEDS: OMEPRAZOLE 20 MG CAPSULE.DR PO SCH (09:14)
--- NOTE | 2019-01-08 10:06 | NUR ---
PIV medicaiton finished infusing per EMAR. NADN. Pt requesting "something for nausea".
--- NOTE | 2019-01-08 10:10 | NUR ---
Called admitting doctor requesting anti-nausea medicaiton per pt request. Left voicemail.
--- NOTE | 2019-01-08 10:16 | NUR ---
Admitting MD called back and stated, "put in Zofran 4 mg PIV q 6 hours prn nausea." Order read back and entered in per Admitting MD telephone order.
[2019-01-08] MEDS ORDERED: ONDANSETRON 2MG/ML, 2ML ONE (10:18)
[2019-01-08] MEDS: ONDANSETRON 2MG/ML, 2ML IVPush PRN ×2 (10:21→23:59)
--- NOTE | 2019-01-08 10:33 | NUR ---
Provided pt medication per EMAR for nausea. Pt appreciative. NADN. No other needs expressed at this time.
--- NOTE | 2019-01-08 10:42 | NUR ---
Pt's daughter Skylar called. Pt gave verbal consent to speak to pt's daughter. Updated Skylar on pt's wellbeing and plan of care. All questions answered.
--- NOTE | 2019-01-08 13:25 | NUR ---
Report from Vannessa DOMINIQUE. Assuming pt care at this time. Pt up to BSC without need for assistance. NAD at this time.
--- NOTE | 2019-01-08 13:56 | NUR ---
SBAR REPORT TO TRIP FARRIS, OVER PHONE.
[2019-01-08 14:42] VITALS: BP 107/67
[2019-01-08 19:20] VITALS: BP 95/57
[2019-01-08] MEDS ORDERED: TEMPLATE NON-FORMULARY MED. ([Oxygen] 2 L) INH SCH (21:00)
[2019-01-08] MEDS ORDERED: CEFTRIAXONE PMX 1GM/50ML 50 ML IV SCH (21:00)
[2019-01-08] MEDS ORDERED: GABAPENTIN 100 MG CAPSULE ONE (21:20)
[2019-01-08] MEDS: ATORVASTATIN 80 MG TABLET PO SCH (21:27)
[2019-01-09 01:24] VITALS: BP 114/65
[2019-01-09] MEDS: SODIUM CHLORIDE 0.9% 1,000 ML IV SCH ×2 (03:19→17:30)
[2019-01-09] MEDS: HEPARIN 5,000 UNITS/ML, 1ML SQ SCH ×3 (03:49→23:23)
[2019-01-09 05:28] LABS: MEAN CORPUSCULAR HGB CONC 33.6 g/dL (32.4-35.8); MEAN CORPUSCULAR VOLUME 95.2 fL (80-100); MEAN PLATELET VOLUME 8.3 fL (7.4-10.4); PLATELET COUNT 75 x10^3/uL (130-400); RED BLOOD COUNT 3.25 x10^6/uL (3.82-5.3); RED CELL DISTRIBUTION WIDTH 17.5 % (9.6-15.2)
[2019-01-09 05:39] LABS: % IRON SATURATION 21 % (20-55); ANION GAP 4 mmol/L (5-15); CALCIUM 7.9 mg/dL (8.5-10.1); CHLORIDE 108 mmol/L (98-107); CREATININE 0.84 mg/dL (0.55-1.02); IRON LEVEL 61 mcg/dL (50-170); TOTAL IRON BINDING CAPACITY 291 mcg/dL (250-450)
[2019-01-09 05:56] LABS: BASOPHILS # (AUTO) 0.01 x10^3/uL (0-0.1); BASOPHILS % (AUTO) 1 % (0-1); EOSINOPHILS # (AUTO) 0.04 x10^3/uL (0-0.4); EOSINOPHILS % (AUTO) 2 % (1-7); LYMPHOCYTES % (AUTO) 44 % (22-44); MD SCAN; MONOCYTES # (AUTO) 0.17 x10^3/uL (0.2-0.8); MONOCYTES % (AUTO) 8 % (2-9); NEUTROPHILS # (AUTO) 1.04 x10^3/uL (1.8-6.8); NEUTROPHILS % (AUTO) 46 % (42-75)
[2019-01-09] MEDS: LEVOTHYROXINE 75 MCG TABLET PO SCH (06:20)
[2019-01-09] MEDS: METOPROLOL SUCCINATE 25 MG TAB.ER.24H PO SCH (09:01)
[2019-01-09] MEDS: LOSARTAN 50MG TABLET PO SCH (09:01)
[2019-01-09 09:56] VITALS: BP 105/64
[2019-01-09] MEDS ORDERED: FENTANYL PF 100 MCG/2ML IV PRN (10:30)
[2019-01-09] MEDS ORDERED: ONDANSETRON 2MG/ML, 2ML IV PRN (10:30)
[2019-01-09] MEDS ORDERED: PROPOFOL 10 MG/ML, 20ML ONE (10:35)
[2019-01-09] MEDS: BISACODYL 10 MG SUPP PR SCH (13:30)
[2019-01-09] MEDS: FLUTICASONE NASAL SPRAY 16GM NAS SCH (13:30)
[2019-01-09] MEDS: MECLIZINE 25 MG TABLET PO SCH ×3 (13:30→20:54)
[2019-01-09] MEDS: ACETYLCYSTEINE 600 MG CAPSULE PO SCH ×2 (13:31→21:40)
[2019-01-09] MEDS: CHOLECALCIFEROL 1,000 UNIT TABLET PO SCH (13:32)
[2019-01-09] MEDS: MULTIVITAMIN 1 TABLET PO SCH (13:32)
[2019-01-09] MEDS: DULOXETINE 20 MG CAPSULE.DR PO SCH ×2 (13:32→20:55)
[2019-01-09] MEDS: ASCORBIC ACID 500 MG TABLET PO SCH (13:33)
[2019-01-09] MEDS: GABAPENTIN 300 MG CAPSULE PO SCH ×3 (13:34→20:54)
[2019-01-09] MEDS: LACTOBACILLUS CHEW TABLET PO SCH ×3 (13:34→20:53)
[2019-01-09] MEDS: OMEPRAZOLE 20 MG CAPSULE.DR PO SCH (13:34)
[2019-01-09 14:40] VITALS: BP 125/75
[2019-01-09] MEDS: ACETAMINOPHEN 325 MG TABLET PO PRN (16:46)
[2019-01-09 18:40] VITALS: BP 108/68
[2019-01-09] MEDS: ATORVASTATIN 80 MG TABLET PO SCH (20:53)
[2019-01-09] MEDS: QUETIAPINE 25MG TABLET PO SCH (20:54)
[2019-01-09] MEDS: ONDANSETRON 2MG/ML, 2ML IVPush PRN (20:55)
[2019-01-10 02:37] VITALS: BP 96/54
[2019-01-10] MEDS: SODIUM CHLORIDE 0.9% 1,000 ML IV SCH ×2 (03:20→17:11)
[2019-01-10 05:29] LABS: ANION GAP 3 mmol/L (5-15); CALCIUM 8.1 mg/dL (8.5-10.1); CHLORIDE 108 mmol/L (98-107)
[2019-01-10 05:31] LABS: CREATININE 0.76 mg/dL (0.55-1.02)
[2019-01-10] MEDS: LEVOTHYROXINE 75 MCG TABLET PO SCH (05:47)
[2019-01-10 06:10] LABS: MEAN CORPUSCULAR HEMOGLOBIN 31.1 pg (27.0-34.8); MEAN CORPUSCULAR HGB CONC 32.9 g/dL (32.4-35.8); MEAN CORPUSCULAR VOLUME 94.6 fL (80-100); MEAN PLATELET VOLUME 8.1 fL (7.4-10.4); PLATELET COUNT 76 x10^3/uL (130-400); RED BLOOD COUNT 3.21 x10^6/uL (3.82-5.3); RED CELL DISTRIBUTION WIDTH 17.3 % (9.6-15.2)
[2019-01-10 06:13] LABS: BASOPHILS # (AUTO) 0.01 x10^3/uL (0-0.1); BASOPHILS % (AUTO) 1 % (0-1); EOSINOPHILS # (AUTO) 0.06 x10^3/uL (0-0.4); EOSINOPHILS % (AUTO) 3 % (1-7); LYMPHOCYTES # (AUTO) 1.19 x10^3/uL (1-3.4); LYMPHOCYTES % (AUTO) 56 % (22-44); MD SCAN; MONOCYTES # (AUTO) 0.17 x10^3/uL (0.2-0.8); MONOCYTES % (AUTO) 8 % (2-9); NEUTROPHILS # (AUTO) 0.68 x10^3/uL (1.8-6.8); NEUTROPHILS % (AUTO) 32 % (42-75)
[2019-01-10 06:53] VITALS: BP 120/67
[2019-01-10] MEDS: OMEPRAZOLE 20 MG CAPSULE.DR PO SCH (09:17)
[2019-01-10] MEDS: METOPROLOL SUCCINATE 25 MG TAB.ER.24H PO SCH (09:17)
[2019-01-10] MEDS: MULTIVITAMIN 1 TABLET PO SCH (09:17)
[2019-01-10] MEDS: MECLIZINE 25 MG TABLET PO SCH ×2 (09:17→16:32)
[2019-01-10] MEDS: HEPARIN 5,000 UNITS/ML, 1ML SQ SCH ×2 (09:17→17:12)
[2019-01-10] MEDS: GABAPENTIN 300 MG CAPSULE PO SCH ×2 (09:17→16:33)
[2019-01-10] MEDS: ACETYLCYSTEINE 600 MG CAPSULE PO SCH (09:18)
[2019-01-10] MEDS: ASCORBIC ACID 500 MG TABLET PO SCH (09:18)
[2019-01-10] MEDS: CHOLECALCIFEROL 1,000 UNIT TABLET PO SCH (09:18)
[2019-01-10] MEDS: LOSARTAN 50MG TABLET PO SCH (09:18)
[2019-01-10] MEDS: DULOXETINE 20 MG CAPSULE.DR PO SCH (09:18)
[2019-01-10] MEDS: LACTOBACILLUS CHEW TABLET PO SCH ×2 (09:18→16:32)
[2019-01-10] MEDS: BISACODYL 10 MG SUPP PR SCH (09:19)
[2019-01-10] MEDS: FLUTICASONE NASAL SPRAY 16GM NAS SCH (09:19)
[2019-01-10] MEDS: ACETAMINOPHEN 325 MG TABLET PO PRN (12:20)
[2019-01-10] MEDS ORDERED: ACID1TAB7 PO (13:16)
[2019-01-10] MEDS ORDERED: MECL25TA4 PO (13:16)
[2019-01-10 14:45] VITALS: BP 125/74
== END 2019-01-10 18:00 | disposition home or self-care (01) | DRG 389 ==
LOC: ED 21:15 → EDIP 22:19 → 3NE 01-08 13:36
PROVIDERS: ADMIT Internal Medicine; ATTEND Internal Medicine
PROC: 0D7N8ZZ Dilation of Sigmoid Colon, Via Natural or Artificial Opening Endoscopic (ICD-10-PCS; principal; 2019-01-09 14:30)
DX: K56.50 Intestinal adhesions [bands], unspecified as to partial versus complete obstruction (principal); D61.818 Other pancytopenia; N39.0 Urinary tract infection, site not specified; I50.32 Chronic diastolic (congestive) heart failure; I85.00 Esophageal varices without bleeding; E03.9 Hypothyroidism, unspecified; E11.43 Type 2 diabetes mellitus with diabetic autonomic (poly)neuropathy; E66.9 Obesity, unspecified; E78.5 Hyperlipidemia, unspecified; E83.42 Hypomagnesemia; E87.6 Hypokalemia; F31.9 Bipolar disorder, unspecified; G47.30 Sleep apnea, unspecified; I11.0 Hypertensive heart disease with heart failure; K21.9 Gastro-esophageal reflux disease without esophagitis; K31.84 Gastroparesis; K44.9 Diaphragmatic hernia without obstruction or gangrene; K58.9 Irritable bowel syndrome, unspecified; K64.4 Residual hemorrhoidal skin tags; K64.8 Other hemorrhoids; Z43.3 Encounter for attention to colostomy; Z87.11 Personal history of peptic ulcer disease; Z90.710 Acquired absence of both cervix and uterus; Z86.73 Personal history of transient ischemic attack (TIA), and cerebral infarction without residual deficits; Z88.0 Allergy status to penicillin; Z88.8 Allergy status to other drugs, medicaments and biological substances; Z79.899 Other long term (current) drug therapy; Z88.5 Allergy status to narcotic agent; Z88.2 Allergy status to sulfonamides
CPT/HCPCS: 36415; 74018; 74177; 80048; 80053; 80061; 81001; 83036; 83540; 83550; 83690; 83735; 84439; 84443; 85025; 87086; 96361; 96365; 96374; 96376; G0378; J0696; J1644; J2405; J2704; J3480; Q9967; C1725; J2270; J2765; J3475; J7030; J7040

== ENCOUNTER 2020-09-04 15:17 | Emergency (ER) | payer MEDICARE ==
[~2020-09-04] VITALS: Ht 172.7 cm; Wt 93.0 kg
[~2020-09-04 15:17] MED LIST changes: +ACET-76 PO; +ACID1TAB7 PO; +ASCO100018 PO; -ASCO10004 PO; +ASPI-1026 PO; -ASPI-650 PO; +CALC-780 PO; +HYDR25TA6 PO; +LACT10SO28 PO; +LISI1TAB23 PO; -LISI1TAB3 PO; +LISI1TAB39 PO; -LISI1TAB5 PO; +MECL-101 PO; -MECL25TA4 PO; +METO25TA91 PO; -OMEP10CA4 PO; +OMEP10CA5 PO; +ONDA-89 PO; -ONDA4TAB12 PO; -OXYC-307 PO; +OXYC-380 PO; -OXYC-432 PO; +OXYC10TA6 PO; +OXYC1TAB18 PO; +PANT20TA4 PO; +PANT40TA6 PO; +POTA8TAB6 PO; +SENN-193 PO; +TIZA2CAP PO; +UMEC62.5 INH
--- NOTE | 2020-09-04 15:48 | NUR ---
PT C/O R SIDE ABD PAIN X4 DAYS. HX GALLSTONES, KIDNEY STONES, UTIs. PT CONNECTED TO MONITORING. CALL LIGHT IN REACH. DAUGHTER AT BEDSIDE. MD AT BEDSIDE FOR ASSESSMENT.
--- NOTE | 2020-09-04 15:58 | NUR ---
PT BROUGHT HER URINE SAMPLE WITH HER FROM . AND LAB OK WITH USING THIS SAMPLE. UA COLLECTED AND TAKEN TO LAB. PT WHEELED TO RESTROOM WITH DAUGHTER.
[2020-09-04] MEDS ORDERED: ONDANSETRON 2MG/ML, 2ML IVPush ONE ×2 (16:00→19:30)
[2020-09-04] MEDS ORDERED: ONDANSETRON 2MG/ML, 2ML ONE ×2 (16:01→19:23)
[2020-09-04] MEDS ORDERED: MORPHINE SULFATE 4 MG/ML, 1ML ONE ×2 (16:01→16:40)
[2020-09-04] MEDS: MORPHINE SULFATE 4 MG/ML, 1ML IVPush PRN ×2 (16:14→16:41)
--- NOTE | 2020-09-04 16:17 | NUR ---
PIV PLACED, LABS DRAWN AND COLLECTED BY BU[employer]LE [employer] INSERTER. MEDS ADMIN PER SEP. PT PLACED ON OXYGEN FOR SAFETY. PT CONNECTED TO MONITORING. DAUGHTER AT BEDSIDE.
[2020-09-04 16:20] LABS: BASOPHILS % (AUTO) 1 % (0-1); EOSINOPHILS % (AUTO) 1 % (1-7); LYMPHOCYTES % (AUTO) 40 % (22-44); MEAN CORPUSCULAR HGB CONC 35.3 g/dL (32.4-35.8); MEAN PLATELET VOLUME 8.2 fL (7.4-10.4); MONOCYTES % (AUTO) 7 % (2-9); NEUTROPHILS % (AUTO) 51 % (42-75); PLATELET COUNT 146 x10^3/uL (130-400); RED BLOOD COUNT 4.44 x10^6/uL (3.82-5.3); RED CELL DISTRIBUTION WIDTH 13.2 % (9.6-15.2)
[2020-09-04 16:22] LABS: MD NO
[2020-09-04 16:23] LABS: MICROSCOPIC INDICATED
[2020-09-04 16:32] LABS: ALANINE AMINOTRANSFERASE 46 U/L (12-78); ALBUMIN 3.7 g/dL (3.4-5.0); ANION GAP 9 mmol/L (5-15); CALCIUM 9.7 mg/dL (8.5-10.1); CHLORIDE 102 mmol/L (98-107); CREATININE 1.03 mg/dL (0.55-1.02)
[2020-09-04 16:34] LABS: ALKALINE PHOSPHATASE 107 U/L (45-117); BILIRUBIN,TOTAL 1.6 mg/dL (0.2-1.0); TOTAL PROTEIN 8.3 g/dL (6.4-8.2)
--- NOTE | 2020-09-04 16:43 | NUR ---
PT C/O 05/09 PAIN. SECOND DOSE PAIN MANAGER REGISTRATION PER SEP.
--- NOTE | 2020-09-04 17:12 | NUR ---
ALL RESULTS ARE BACK AT THIS TIME. CHART UP FOR RECHECK.
--- NOTE | 2020-09-04 17:34 | NUR ---
PT RESTING IN [facility]. COLD WET CLOTH PROVIDED FOR COMFORT. LIGHTS DIMMED. UP FOR RECHECK
[2020-09-04] MEDS ORDERED: KETOROLAC 30 MG/1 ML IVPush ONE (19:00)
[2020-09-04] MEDS ORDERED: KETOROLAC 30 MG/1 ML ONE (19:16)
[2020-09-04 19:20] VITALS: BP 126/42
--- NOTE | 2020-09-04 19:20 | NUR ---
MEDS ADMIN PER SEP.
--- NOTE | 2020-09-04 19:52 | NUR ---
PT STATES PAIN IS BETTER.
[2020-09-04] MEDS ORDERED: PROMETHAZINE 25 MG/ML, 1ML IM ONE (20:00)
[2020-09-04] MEDS ORDERED: PROMETHAZINE 25 MG/ML, 1ML ONE (20:02)
--- NOTE | 2020-09-04 20:06 | NUR ---
PT STILL WRETCHING. IM PHENERGAN ADMIN PER SEP.
== END 2020-09-04 21:14 ==
LOC: ED 20:45
DX: N20.0 Calculus of kidney (principal); R11.2 Nausea with vomiting, unspecified; E86.0 Dehydration; M54.5 Low back pain; I10 Essential (primary) hypertension; E78.5 Hyperlipidemia, unspecified; E11.9 Type 2 diabetes mellitus without complications; Z88.9 Allergy status to unspecified drugs, medicaments and biological substances; Z88.0 Allergy status to penicillin; Z87.891 Personal history of nicotine dependence; Z90.49 Acquired absence of other specified parts of digestive tract; Z90.89 Acquired absence of other organs
CPT/HCPCS: 36415; 74176; 80053; 81001; 83690; 85025; 87086; 96372; 96374; 96375; 96376; 99285; J1885; J2270; J2405; J2550

== ENCOUNTER 2021-01-15 14:48 | Emergency (ER) | payer MEDICARE ==
[~2021-01-15] VITALS: Ht 172.7 cm; Wt 90.4 kg
[~2021-01-15 14:48] MED LIST changes: +NAPR-872 PO; -NAPR250T6 PO
[2021-01-15 15:30] LABS: BASOPHILS % (AUTO) 1 % (0-1); EOSINOPHILS % (AUTO) 1 % (1-7); LYMPHOCYTES % (AUTO) 37 % (22-44); MEAN CORPUSCULAR HEMOGLOBIN 35.1 pg (27.0-34.8); MEAN CORPUSCULAR HGB CONC 35.2 g/dL (32.4-35.8); MEAN PLATELET VOLUME 8.6 fL (7.4-10.4); MONOCYTES % (AUTO) 9 % (2-9); NEUTROPHILS % (AUTO) 52 % (42-75); PLATELET COUNT 121 x10^3/uL (130-400); RED BLOOD COUNT 4.27 x10^6/uL (3.82-5.3); RED CELL DISTRIBUTION WIDTH 12.9 % (9.6-15.2)
[2021-01-15 15:32] LABS: ALANINE AMINOTRANSFERASE 45 U/L (12-78); ALBUMIN 3.5 g/dL (3.4-5.0); ANION GAP 11 mmol/L (5-15); CALCIUM 9.2 mg/dL (8.5-10.1); CHLORIDE 107 mmol/L (98-107); CREATININE 1.03 mg/dL (0.55-1.02)
[2021-01-15 15:34] LABS: ALKALINE PHOSPHATASE 92 U/L (45-117); BILIRUBIN,TOTAL 1.2 mg/dL (0.2-1.0); TOTAL PROTEIN 7.9 g/dL (6.4-8.2)
--- NOTE | 2021-01-15 15:45 | NUR ---
PER RADIOLOGY, PT HAS NOT RESPONDED TO MULPTIPLE CALL ATTEMPTS.
--- NOTE | 2021-01-15 18:05 | NUR ---
PT WHEELED FROM LOBBY TO ROOM IN WHEELCHAIR WITH DAUGHTER AT BS. PT CHANGED INTO GOWN AND IN GURNEY. PT EDUCATED ON ER PROCESS AND POC AND VERBALIZES UNDERSTANDING. CALL LIGHT WITHIN REACH OF PT AT THIS TIME.
--- NOTE | 2021-01-15 18:10 | NUR ---
PT WHEELED TO BATHROOM TO VOID FOR UA AT THIS TIME.
--- NOTE | 2021-01-15 18:55 | NUR ---
[facility]
[2021-01-15] MEDS ORDERED: MORPHINE SULFATE 4 MG/ML, 1ML IVPush PRN (19:00)
[2021-01-15] MEDS ORDERED: ONDANSETRON 2MG/ML, 2ML IVPush ONE (19:00)
--- NOTE | 2021-01-15 19:01 | NUR ---
PT BACK FROM CT AT THIS TIME.
[2021-01-15] MEDS ORDERED: MORPHINE SULFATE 4 MG/ML, 1ML ONE (19:12)
[2021-01-15] MEDS ORDERED: ONDANSETRON 2MG/ML, 2ML ONE (19:13)
--- NOTE | 2021-01-15 19:16 | NUR ---
PIV ACCESS ESTABLISHED. PT MEDICATED PER SEP. PT URINE TUBED TO LAB AT THIS TIME.
[2021-01-15 19:24] LABS: MICROSCOPIC INDICATED
[2021-01-15] MEDS ORDERED: CEFTRIAXONE 1,000 MG in DEXTROSE 5% 50 ML IVPB ONE (20:30)
[2021-01-15] MEDS ORDERED: METOCLOPRAMIDE 5 MG/ML, 2ML ONE (20:48)
--- NOTE | 2021-01-15 20:55 | NUR ---
pt medicated per mar.
[2021-01-15] MEDS ORDERED: METOCLOPRAMIDE 5 MG/ML, 2ML IVPush ONE (21:00)
[2021-01-15 21:34] VITALS: BP 119/37
--- NOTE | 2021-01-15 21:43 | NUR ---
TASK RN: Patient given discharge instructions and they have confirmed that they understand the instructions. Patient ambulatory with steady gait, to d/c desk via wheelchair.
== END 2021-01-15 21:45 | disposition home or self-care (01) ==
LOC: ED 19:05
DX: K80.20 Calculus of gallbladder without cholecystitis without obstruction (principal); N30.00 Acute cystitis without hematuria; I11.0 Hypertensive heart disease with heart failure; I50.9 Heart failure, unspecified; E11.9 Type 2 diabetes mellitus without complications; K21.9 Gastro-esophageal reflux disease without esophagitis; E03.9 Hypothyroidism, unspecified; E78.5 Hyperlipidemia, unspecified; Z87.11 Personal history of peptic ulcer disease; Z90.89 Acquired absence of other organs; Z90.710 Acquired absence of both cervix and uterus; Z90.49 Acquired absence of other specified parts of digestive tract; Z88.0 Allergy status to penicillin; Z88.2 Allergy status to sulfonamides; Z88.1 Allergy status to other antibiotic agents; Z88.5 Allergy status to narcotic agent
CPT/HCPCS: 36415; 74018; 74176; 76770; 80053; 81001; 83690; 85025; 87086; 96365; 96375; 99285; J0696; J2270; J2405; J2765